=== PATIENT | female | born 1945 | race Caucasian/White ===

== ENCOUNTER 2022-03-05 19:40 | Emergency (ER) | payer OTHER ==
[~2022-03-05] VITALS: Ht 170.2 cm; Wt 69.9 kg
[~2022-03-05 19:40] MED LIST: NABUMETONE500 MG PO; PERCOCET 5/3251 TAB PO
[2022-03-05] MEDS ORDERED: METAXALONE800 MG (20:31)
[2022-03-05] MEDS ORDERED: MELOXICAM15 MG (20:31)
[2022-03-05] MEDS ORDERED: ZESTRIL5 MG (20:32)
[2022-03-05] MEDS ORDERED: NAPR500T14 (20:33)
[2022-03-05] MEDS ORDERED: PANTOPRAZOLE 20 MG (20:34)
[2022-03-07] MEDS ORDERED: SIMVASTATIN40 MG PO (10:34)
[2022-03-07] MEDS ORDERED: ELIQUIS5 MG PO (10:34)
== END 2022-03-06 12:03 | disposition home or self-care (01) ==
LOC: ER 19:40
DX: M79.605 Pain in left leg (principal); M79.604 Pain in right leg; I87.2 Venous insufficiency (chronic) (peripheral)

== ENCOUNTER 2022-03-07 10:14 | Emergency (ER) | payer OTHER ==
[~2022-03-07] VITALS: Ht 170.2 cm; Wt 69.9 kg
[~2022-03-07 10:14] MED LIST changes: +MELOXICAM15 MG; +METAXALONE800 MG; +NAPR500T14; +PANTOPRAZOLE 20 MG; +ZESTRIL5 MG
[2022-03-07] MEDS ORDERED: ELIQUIS5 MG PO (10:34)
[2022-03-07] MEDS ORDERED: SIMVASTATIN40 MG PO (10:34)
== END 2022-03-07 16:19 | disposition home or self-care (01) ==
LOC: ER 10:14
DX: R53.81 Other malaise (principal); R31.9 Hematuria, unspecified; M19.90 Unspecified osteoarthritis, unspecified site; E78.00 Pure hypercholesterolemia, unspecified; Z20.822 Contact with and (suspected) exposure to COVID-19